=== PATIENT | male | born 1935 | race Caucasian/White ===

== ENCOUNTER → 2023-09-16 | Outpatient (CLI) | payer MEDICARE, OTHER, SELFPAY ==
--- NOTE | 2023-09-16 09:03 | ADUL_ITS ---
Reason For Study: Post Op Angioplasty Rt Lauren Right Velocities Ext. Iliac Artery, dist = 66 cm./sec. Common Femoral Artery, mid = 110 cm./sec. Supf Femoral Artery, prox = 82 cm./sec. Supf Femoral Artery, mid = 82 cm./sec. Supf Femoral Artery, dist. = 66 cm./sec. Profunda Femoral Artery = 54 cm./sec. Rt Lauren Stent: Pre-stent: 70 cm/sec. Prox stent: 97 cm/sec.. Mid stent: 148 cm/sec. Distal stent: 80 cm/sec. Post stent: 75 cm/sec. Ant. Tibial Artery, prox = 63 cm./sec. Ant. Tibial Artery, mid = 68 cm./sec. Ant. Tibial Artery, dist = 67 cm./sec. Post. Tibial Artery, prox = 148 cm./sec. Post. Tibial Artery, mid = 52 cm./sec. Post. Tibial Artery, dist = 31 cm./sec. Peroneal Artery, prox = 206 cm./sec. Peroneal Artery, mid = 92 cm./sec. Peroneal Artery,dist = 94 cm./sec. Procedure Exam performed in department. /US Art Duplex Unilat Lower Ext Interpretation Summary Patent right popliteal artery stent with normal velocities and no evidence of s tenosis. Ordering Physician: Page Diaz Referring Physician: Roscoe Hart Performed By: Mehreen Torres, YASHIRA, RVT
--- NOTE | 2023-09-16 09:03 | ART_ITS ---
Reason For Study: Post Op Rt Lauren Angioplasty Procedure A bilateral lower extremity continuous wave Doppler with analog waveform analysis and ankle brachial indexes. Left Segmental Pressures Left brachial= 168mmHg. Left posterior tibial artery = 198mmHg. Left dorsalis pedis artery = 201mmHg. Left digit = 99 mmHg. Right Segmental Pressures Right brachial= 158mmHg. Right posterior tibial artery = 178mmHg. Right dorsalis pedis artery = 191mmHg. Right digit = 100 mmHg. Indices The right ankle brachial index by the posterior tibial artery is 1.06. The right ankle brachial index by the dorsalis pedis is 1.14. The right digital-brachial index is 0.60. The left ankle brachial index by the posterior tibial artery is 1.18. The left ankle brachial index by the dorsalis pedis is 1.20. The left digital-brachial index is 0.59. VL/Ankle Brachial Index Interpretation Summary Right ESTEBAN 1.14, normal. Doppler/PVR waveforms of the right leg normal at rest. 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 Doppler/PVR waveforms of the left leg normal at rest. 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
--- OUTSIDE RECORDS SUMMARY | 2023-09-16 09:11 | XMS RPT_ITS | CCD ---
Author Name Unknown Address [address] [place] [address] Organization [facility] Care Team Providers Care Resident Assistant Cna Name Role Phone Miles Hart MD Primary Care Provider Evans Arellano DO Unavailable Emmett Jaramillo MD Unavailable RACQUEL BAKER DO Attending Unavailable RACQUEL BAKER DO Admitting Unavailable RACQUEL BAKER DO Primary Care Unavailable MILES HART Consulting Unavailable MILES HART Referring Unavailable PROVIDER, UNKNOWN Consulting Unavailable PROVIDER, UNKNOWN Consulting Unavailable PROVIDER, UNKNOWN Consulting Unavailable MILES HART Consulting Unavailable MILES HART Admitting Unavailable MILES HART Attending Unavailable MILES HART Primary Care Unavailable PROVIDER, UNKNOWN Consulting Unavailable PROVIDER, UNKNOWN Consulting Unavailable PROVIDER, UNKNOWN Consulting Unavailable KATHYA PORTER Attending Unavailable KATHYA PORTER Admitting Unavailable MILES HART Consulting Unavailable KATHYA PORTER Primary Care Unavailable MILES HART Referring Unavailable PROVIDER, UNKNOWN Consulting Unavailable PROVIDER, UNKNOWN Consulting Unavailable PROVIDER, UNKNOWN Consulting Unavailable EMMETT JARAMILLO MD Attending Unavailable EMMETT JARAMILLO MD Admitting Unavailable MILES HART Consulting Unavailable EMMETT JARAMILLO MD Primary Care Unavailable PROVIDER, UNKNOWN Consulting Unavailable PROVIDER, UNKNOWN Consulting Unavailable PROVIDER, UNKNOWN Consulting Unavailable MULU LYNCH MD Primary Care Unavailabl MULU Rangel MD Attending UnavailMILES Araiza Consulting Unavailable MULU LYNCH MD Admitting Unavailabl e PROVIDER, UNKNOWN Consulting Unavailable PROVIDER, UNKNOWN Consulting Unavailable PROVIDER, UNKNOWN Consulting Unavailable MULU LYNCH MD Admitting UnavailMULU Flores MD Primary Care Unavailabl e MULU LYNCH MD Attending UnavailMILES Araiza Consulting Unavailable PROVIDER, UNKNOWN Consulting Unavailable PROVIDER, UNKNOWN Consulting Unavailable PROVIDER, UNKNOWN Consulting Unavailable MILES HART Consulting Unavailable MILES HART Attending Unavailable MILES HART Admitting Unavailable MILES HART Primary Care Unavailable PROVIDER, UNKNOWN Consulting Unavailable PROVIDER, UNKNOWN Consulting Unavailable PROVIDER, UNKNOWN Consulting Unavailable MILES HART Consulting Unavailable MILES HART Attending Unavailable MILES HART Primary Care Unavailable MILES HART Admitting Unavailable PROVIDER, UNKNOWN Consulting Unavailable PROVIDER, UNKNOWN Consulting Unavailable PROVIDER, UNKNOWN Consulting Unavailable MILES HART Consulting Unavailable MILES HART Attending Unavailable NATALIA, MILES Admitting Unavailable MILES HRAT Primary Care Unavailable PROVIDER, UNKNOWN Consulting Unavailable PROVIDER, UNKNOWN Consulting Unavailable PROVIDER, UNKNOWN Consulting Unavailable MULU LYNCH MD Admitting UnavailMULU Flores MD Primary Care UnavailMULU Flores MD Attending Unavailabl e MILES HART Consulting Unavailable PROVIDER, UNKNOWN Consulting Unavailable PROVIDER, UNKNOWN Consulting Unavailable PROVIDER, UNKNOWN Consulting Unavailable RACQUEL BAKER DO Attending Unavailable RACQUEL BAKER DO Admitting Unavailable MILES HART Consulting Unavailable RACQUEL BAKER DO Primary Care Unavailable PROVIDER, UNKNOWN Consulting Unavailable PROVIDER, UNKNOWN Consulting Unavailable PROVIDER, UNKNOWN Consulting Unavailable MILES HART Consulting Unavailable NATALIA, MILES Attending Unavailable NATALIA, MILES Admitting Unavailable NATALIA, MILES Primary Care Unavailable PROVIDER, UNKNOWN Consulting Unavailable PROVIDER, UNKNOWN Consulting Unavailable PROVIDER, UNKNOWN Consulting Unavailable COLTEN PATEL MD Attending Unavailable COLTEN PATEL MD Admitting Unavailable MILES HART Consulting Unavailable MILES HART Referring Unavailable COLTEN PATEL MD Primary Care Unavailable PROVIDER, UNKNOWN Consulting Unavailable PROVIDER, UNKNOWN Consulting Unavailable PROVIDER, UNKNOWN Consulting Unavailable Miles Hart MD Primary Care Provider Evans Arellano DO Unavailable Emmett Jaramillo MD Unavailable EVANS ARELLANO Attending Unavailable MILES HART Primary Care Unavailable RAPHAEL CORTÉS Referring Unavailable EVANS ARELLANO Referring Unavailable MILES HART Primary Care Unavailable EVANS ARELLANO Referring Unavailable MILES HART Primary Care Unavailable RAPHAEL CORTÉS Attending Unavailable EVANS ARELLANO Referring Unavailable MILES HART Primary Care Unavailable Allergies Allergy Classification Reported Allergen(s) Allergy Type Date of Onset Reaction(s) Facility (16 sources) Sulfonamides (Antibiotic); Translations: [SULFA (SULFONAMIDE ANTIBIOTICS)] Propensity to adverse reactions to drug 5 Unknown [facility] (1 source) Sulfonamides (Antibiotic) Drug allergy (disorder) [facility] Repository Medications Current Medications Medication Drug Class(es) Dates Sig (Normalized) Sig (Original) perflutren lipid microspheres 1.3 mL in NaCl (PF) 0.9% 10 mL injection (DEFINITY) (14 sources) Start: 09-25-2021 End: 12-25-2022 perflutren lipid microspheres 1.3 mL in NaCl (PF) 0.9% 10 mL injection (DEFINITY) 125 ml sodium chloride 9 mg/ml prefilled syringe (14 sources) Start: 09-25-2021 End: 12-25-2022 sodium chloride 0.9 % (flush) 10 mL (BD POSIFLUSH) Completed/Discontinued Medications Medication Drug Class(es) Dates Sig (Normalized) Sig (Original) 8 hr acetaminophen 650 mg extended release oral tablet (15 sources) take 1 tablet by mouth every eight hours as needed acetaminophen 650 mg CR tablet Take 650 mg by mouth every 8 hours as needed. 0 Active Problems Active Problems Problem Classification Problem Date Documented Date Episodic/Chronic Aortic; peripheral; and visceral artery aneurysms (15 sources) Aortic root dilatation; Translations: [Thoracic aortic ectasia] Onset: 10-05-2021 10-05-2021 Chronic Cardiac dysrhythmias (3 sources) Unspecified atrial fibrillation; Translations: [Unspecified atrial fibrillation] Onset: 01-20-2022 Chronic Coagulation and hemorrhagic disorders (18 sources) Immune thrombocytopenia; Translations: [Immune thrombocytopenic purpura] Onset: 08-19-2016 08-19-2016 Chronic Deficiency and other anemia (2 sources) Anemia; Translations: [Anemia, unspecified] Episodic Deficiency and other anemia (1 source) Microcytic anemia; Translations: [Iron deficiency anemia, unspecified] Episodic Deficiency and other anemia (1 source) Iron deficiency anemia, unspecified; Translations: [Microcytic anemia] Onset: 08-16-2023 Episodic Essential hypertension (16 sources) Hypertensive disorder; Translations: [Essential (primary) hypertension] Onset: 11-09-2021 11-09-2021 Chronic Heart valve disorders (16 sources) Aortic valve stenosis; Translations: [Nonrheumatic aortic (valve) stenosis] Onset: 10-05-2021 10-05-2021 Chronic Hyperplasia of prostate (2 sources) Benign prostatic hypertrophy with outflow obstruction; Translations: [Benign prostatic hyperplasia with lower urinary tract symptoms] Onset: 01-20-2022 Chronic Leukemias (20 sources) Chronic lymphoid leukemia, disease; Translations: [Chronic lymphocytic leukemia of B-cell type not having achieved remission] Onset: 07-16-2015 07-16-2015 Chronic Other connective tissue disease (15 sources) History of total hip arthroplasty; Translations: [Presence of unspecified artificial hip joint] Onset: 11-12-2021 11-12-2021 Chronic Other connective tissue disease (1 source) History of repair of hip joint; Translations: [Presence of unspecified artificial hip joint] Chronic Other connective tissue disease (4 sources) Presence of right artificial hip joint; Translations: [Presence of right artificial hip joint] Onset: 01-20-2022 Chronic Other non-traumatic joint disorders (2 sources) Pain in right hip joint; Translations: [Pain in right hip] Episodic Kathy-; endo-; and myocarditis; cardiomyopathy (except that caused by tuberculosis or sexually transmitted disease) (15 sources) Heart valve disorder; Translations: [Endocarditis, valve unspecified] Onset: 10-05-2021 10-05-2021 Chronic Pulmonary heart disease (15 sources) Pulmonary hypertension, unspecified; Translations: [Other chronic pulmonary heart diseases] Onset: 10-05-2021 10-05-2021 Chronic Past or Other Problems Problem Classification Problem Date Documented Da te Episodic/Chronic Allergic reactions (1 source) Allergy status to sulfonamides status; Translations: [Allergy status to sulfonamides] Onset: 01-20-2022 Episodic Complication of device; implant or graft (15 sources) Disorder of prosthetic joint; Translations: [Broken internal right hip prosthesis, initial encounter] Onset: 10-05-2021 10-05-2021 Episodic Fluid and electrolyte disorders (2 sources) Hypokalemia; Translations: [Hypokalemia] Onset: 01-20-2022 Episodic Genitourinary symptoms and ill-defined conditions (6 sources) Retention of urine; Translations: [Retention of urine, unspecified] Onset: 01-04-2022 Episodic Residual codes; unclassified (1 source) Acquired absence of other specified parts of digestive tract; Translations: [Acquired absence of other specified parts of digestive tract] Onset: 01-20-2022 Episodic Results Test Name Value Interpretation Reference Range Facil ity Vital Signs Date Time Vital Sign Value Performing Clinician Abril cabrera 08-16-2023 09:36-0500 Body temperature 97.81 [degF] Evans Arellano DO Work Phone: [facility] 08-16-2023 09:36-0500 Body weight 83.01 kg Evans Masci DO Work Phone: [facility] 08-16-2023 09:36-0500 Diastolic blood pressure 72 mm[Hg] Evans Masci DO Work Phone: [facility] 08-16-2023 09:36-0500 Heart rate 83 /min Evans Masci DO Work Phone: [facility] 08-16-2023 09:36-0500 SaO2% (BldA) [Mass fraction] 99 % Evans Masci DO Work Phone: [facility] 08-16-2023 09:36-0500 Systolic blood pressure 162 mm[Hg] Evans Masci DO Work Phone: [facility] 08-10-2022 11:23-0500 Body temperature 98.1 [degF] Evans Masci DO Work Phone: [facility] 08-10-2022 11:23-0500 Body weight 82.33 kg Evans Masci DO Work Phone: [facility] 08-10-2022 11:23-0500 Diastolic blood pressure 82 mm[Hg] Evans Masci DO Work Phone: [facility] 08-10-2022 11:23-0500 Heart rate 49 /min Evans Masci DO Work Phone: [facility] 08-10-2022 11:23-0500 Systolic blood pressure 146 mm[Hg] Evans Masci DO Work Phone: [facility] 02-12-2022 10:30-0400 Body temperature 98.4 [degF] Evans Masci DO Work Phone: [facility] 02-12-2022 10:30-0400 Body weight 83.01 kg Evans Masci DO Work Phone: [facility] 02-12-2022 10:30-0400 Diastolic blood pressure 77 mm[Hg] Evans Masci DO Work Phone: [facility] 02-12-2022 10:30-0400 Heart rate 59 /min Evans Masci DO Work Phone: [facility] 02-12-2022 10:30-0400 Systolic blood pressure 135 mm[Hg] Evans Arellano DO Work Phone: [facility] 12-25-2021 11:10-0400 Body height 175.3 cm Alvin Montgomery MD Work Phone: [facility] 12-25-2021 11:10-0400 Body weight 84.82 kg Alvin Montgomery MD Work Phone: [facility] 12-25-2021 11:10-0400 Diastolic blood pressure 62 mm[Hg] Alvin Montgomery MD Work Phone: [facility] 12-25-2021 11:10-0400 Heart rate 58 /min Alvin Montgomery MD Work Phone: [facility] 12-25-2021 11:10-0400 Respiratory rate 18 /min Alvin Montgomery MD Work Phone: [facility] 12-25-2021 11:10-0400 Systolic blood pressure 133 mm[Hg] Alvin Montgomery MD Work Phone: [facility] 12-09-2021 10:47-0400 Body height 175.3 cm Jenifer Diaz APRN.[employer]PH[employer]ER Work Phone: [facility] Encounters Encounter Date Encounter Type Care Provider Facility Start: 08-16-2023 End: 08-17-2023 ambulatory EVANS ARELLANO Facility:[facility] Start: 08-16-2023 End: 08-16-2023 ambulatory Evans Arellano DO Work Phone: Hematology/Oncology Procedures Date Procedure Procedure Detail Performing Clinician Start: 03-09-2022 Radex hip unilateral with pelvis 2-3 views Kilo Castillo APRN.[employer]PH[employer] LAYER Work Phone: Start: 09-25-2021 Antibody screen Plan of Treatment Date Care Activity Detail Author Start: 09-19-2026 Urine microalbumin profile DTaP,Tdap,Td Vaccine (2 - Td or Tdap) [facility] Start: 08-16-2026 Diabetes Screening Diabetes Screening [facility] Start: 08-10-2025 DIABETES SCREEN DIABETES SCREEN [facility] Start: 02-12-2025 DIABETES SCREEN DIABETES SCREEN [facility] Start: 11-16-2024 DIABETES SCREEN DIABETES SCREEN [facility] Start: 05-20-2023 Covid-19 Vaccine ( season) Covid-19 Vaccine () [facility] Start: 09-19-2022 ADVANCE DIRECTIVE DISCUSSION ADVANCE DIRECTIVE DISCUSSION [facility] Start: 09-19-2022 DEPRESSION ASSESSMENT DEPRESSION ASSESSMENT [facility] Start: 08-10-2022 End: 10-10-2022 CBC W Auto Differential panel - Blood CBC + DIFF Lab STAT CLL (chronic lymphocytic leukemia) (HCC) Anemia, unspecified type Immune thrombocytopenic purpura (HCC) Expected: 08/10/2022, Expires: 10/10/2022 [facility] Work Phone: Payers Date Payer Category Payer Unknown MMO MMO MEDICARE SUPPLEMENT [id number] 2019-Present [phone] [address] [place] [address] Indemnity [id number] 2019 Unknown MMO MMO MEDICARE SUPPLEMENT [id number] 2019-Present [phone] [address] [place] [address] Indemnity [id number] 2019 Unknown [id number] 1999 Medicare MEDICARE MEDICAR E A AND B [id number] 1999-Present [phone] [address] [address] [place] [address] Medicare [id number] 1999 Medicare MEDICARE MEDICAR E A AND B [id number] 1999-Present [phone] [place] [address] Medicare [id number] 1999 Medicare [id number] 1934 Unknown [id number] 1934 Unknown [id number] 1934 Unknown [id number] 1934 Unknown [id number] 1934 Unknown [id number] 1934 Unknown [id number] 1934 Unknown [id number] 1934 Unknown [id number] 1934 Unknown [id number] 1934 Unknown [id number] 1934 Unknown [id number] 1934 Unknown [id number] 1934 Unknown [id number] Social History Date Type Detail Facility Start: 07-16-2015 Tobacco smoking stat [facility] Never smoked tobacco [facility] Start: 07-16-2015 Tobacco use and exposure Smoke less tobacco non-user [facility] Start: 12-09-2021 End: 08-16-2023 Alcohol intake Current non-drinker of alcohol (finding) [facility] Start: 1935 Sex Assigned At Not on file C [facility] Start: 11-29-2021 End: 08-10-2022 Exposure to SARS-CoV-2 (event) Not sure [facility] Start: 02-09-2023 End: 08-16-2023 History of Social function [facility] Start: 02-09-2023 End: 08-16-2023 Tobacco use panel [facility] Adult Depression Scr eening Assessment 0 [facility] Medical Equipment Procedure Code Equipment Code Equipment Origin al Text Equipment Identifier Dates Stem Lamar Sts 2 2mm Taper Titanium 150mm Femoral Press Fit Spline Modular - [id number] Start: 11-12-2021 Body Lamar B Sta ndard Offset Titanium 60mm Cone Modular Revision System - [id number] Start: 11-12-2021 Shell G7 58mm G Offset Hemisphere Osseoti Acetabular Multihole Hip - [id number] Start: 11-12-2021 Liner G7 46mm G Acetabular 2 Mobility Hip - [id number] Start: 11-12-2021 Bearing Active Articulation 46mm Arcomxl Hip 28mm Modular Head 2 Mobility - [id number] Start: 11-12-2021 Head G7 28mm Bio lox Delta Femoral Hip - [id number] Start: 11-12-2021 Sleeve G7 -6mm O ffset Taper Biolox Delta Option Titanium Centering Type 1 - [id number] Start: 11-12-2021 Cable Dall-Miles 2mm Vitallium Orthopedic Set Sleeve Bead Hip - [id number] Start: 11-12-2021 Cable Dall-Miles 2mm Vitallium Orthopedic Set Sleeve Bead Hip - [id number] Start: 11-12-2021 Cable Dall-Miles 2mm Vitallium Orthopedic Set Sleeve Bead Hip - [id number] Start: 11-12-2021 Screw Trilogy 6. 5mm Tivanium 25mm Bone Self Tap Sterile Hip Cortical - [id number] Start: 11-12-2021 Screw Trilogy 6. 5mm Tivanium 25mm Bone Self Tap Sterile Hip Cortical - [id number] Start: 11-12-2021 Screw Trilogy 6. 5mm Tivanium 25mm Bone Self Tap Sterile Hip Cortical - [id number] Start: 11-12-2021 Clinical Notes 10-19-2021 to 08-16-2023 Evans Arellano, - 08/16/2023 9:52 AM ESTTelephone Encounter - Beth Pruitt RN - 11/24/2022 4:06 PM ESTTelephone Encounter - Evans Arellano DO - 08/19/2022 11:53 AM ESTPatient Instructions Note Date & Type Note Facility 08-16-2023 Note HNO ID: [id number] Author: Evans Arellano DO Service: ? Author Type: Physician Type: Progress Notes Filed: 08/16/2023 10:29 AM Note Text: Diagnosis: 1) CLL. HPI: The patient is a 88 yo male with a PMH significant for HTN who has a h/o CLL. See scanned labs--mild anemia and t-penia. Previous therapy: 1) Gazyva/chlorambucil. 2016. Had R hip replacement 10/2021. 5 hour surgery. Recalls getting at least 1 unit RBCs. Urinary retention following--had TURP and indwelling catheter x2 weeks. He underwent outpatient thrombectomy and stent placement to the right popliteal artery on 05/19. He was observed overnight in the PCU and discharged the following day. Was discharged on rivaroxaban. While admitted, hemoglobin was 14.2 g/dL with an MCV of 82.6 and MCH of 26 pg. Platelet count 121,000. White count 6700. Presents for ongoing oncologic management. Interim history: Had the flu 2 weeks ago. Testing confirmed. Had influenza vaccination. No fever. Aches with cough. Better now. No unusual bleeding. 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 PMH, medications and allergies as below personally reviewed by me today. Any changes documented in appropriate section. ROS: Constitutional: No episode of fever, shaking chill or change in appetite. Neuro: Denies CHAVARRIA, vertigo and imbalance. No symptoms of neuropathy. HEENT: No recent change in voice, vision or hearing. Resp: See above. CVS: Denies exertional chest pain, PND, orthopnea and LE edema. GI: Denies reflux, n/v, change in bowel habits and abdominal pain. No symptoms of stomatitis. : No dysuria or gross hematuria. No symptoms of bladder outlet obstruction. Endo: No hot flashes. Derm: No rash. Heme: See above. Psych: Normal mood. PHYSICAL EXAM: Vitals: Blood pressure 162/72, pulse 83, temperature 36.6 ?C (97.8 ?F), temperature source Temporal, weight 83 kg (183 lb), SpO2 99 %. Well-appearing and in no acute distress. EYES: Sclerae are anicteric bilaterally. LYMPHATIC: There is no palpable cervical, supraclavicular or axillary adenopathy. RESPIRATORY: Inspiratory breath sounds are of normal intensity in all coombs. No rales, wheezes or rhonchi. CARDIOVASCULAR: Rhythm is regular. ABDOMEN: The abdomen is nondistended. There is no organomegaly. No tenderness. Extremities: Free of edema. SKIN: No jaundice or rash. No petechiae. NEUROLOGIC: global cto II-XII are grossly intact. LABS: Component Latest Ref Rng AND Units 08/16/2023 WBC 3.70 - 11.00 k/uL 6.75 RBC 4.20 - 6.00 m/uL 5.27 Hemoglobin 13.0 - 17.0 g/dL 15.3 Hematocrit 39.0 - 51.0 % 46.7 MCV 80.0 - 100.0 fL 88.6 MCH 26.0 - 34.0 pg 29.0 MCHC 30.5 - 36.0 g/dL 32.8 RDW-CV 11.5 - 15.0 % 13.0 Platelet Count 150 - 400 k/uL 144 (L) MPV 9.0 - 12.7 fL 10.6 Neut% % 61.4 Abs Neut (ANC) 1.45 - 7.50 k/uL 4.15 Lymph% % 24.0 Abs Lymph 1.00 - 4.00 k/uL 1.62 [place]% % 7.3 Abs [place] <0.87 k/uL 0.49 Eosin% % 6.4 Abs Eosin <0.46 k/uL 0.43 Baso% % 0.6 Abs Baso <0.11 k/uL 0.04 Immature Gran % % 0.3 IMMATURE GRANS (ABS) <0.10 k/uL <0.03 NRBC /100 WBC 0.0 Absolute nRBC <0.01 k/uL <0.01 DTYPE Auto ASSESSMENT/PLAN: (C91.10) CLL (chronic lymphocytic leukemia) (HCC) (primary encounter diagnosis) (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 -Response evidenced by previous correction of anemia. -Reviewed CBC results. -Mild thrombocytopenia which is stable and allows for continued Xarelto. -Back on Xarelto for h/o DVT. Plan: -Advised updated Covid vaccination and RSV vaccination. -OV/CBC/CMP/iron studies/LDH in about 6 months. Portions of this documentation were copied and pasted from previous office visit notes in order to provide a cohesive continuity of the history. The note has been reviewed and edited and updated as necessary. I spent a total of 20 minutes on the date of the service which included preparing to see the patient, [id number] patient care, completing clinical documentation, obtaining and/or reviewing separately obtained history, performing a medically appropriate examination, counseling and educating the patient/family/caregiver, communicating with other HCPs (not separately reported), and communicating results to the patient/family/caregiver. Evans Arellano DO [facility] 08-16-2023 History of Presen t illness Narrative Diagnosis: 1) CLL. HPI: The patient is a 88 yo male with a PMH significant for HTN who has a h/o CLL. See scanned labs--mild anemia and t-penia. Previous therapy: 1) Gazyva/chlorambucil. 2015. Had R hip replacement 10/2021. 5 hour surgery. Recalls getting at least 1 unit RBCs. Urinary retention following--had TURP and indwelling catheter x2 weeks. He underwent outpatient thrombectomy and stent placement to the right popliteal artery on 05/19. He was observed overnight in the PCU and discharged the following day. Was discharged on rivaroxaban. While admitted, hemoglobin was 14.2 g/dL with an MCV of 82.6 and MCH of 26 pg. Platelet count 121,000. White count 6700. Presents for ongoing oncologic management. Interim history: Had the flu 2 weeks ago. Testing confirmed. Had influenza vaccination. No fever. Aches with cough. Better now. No unusual bleeding. 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 PMH, medications and allergies as below personally reviewed by me today. Any changes documented in appropriate section. ROS: Constitutional: No episode of fever, shaking chill or change in appetite. Neuro: Denies CHAVARRIA, vertigo and imbalance. No symptoms of neuropathy. HEENT: No recent change in voice, vision or hearing. Resp: See above. CVS: Denies exertional chest pain, PND, orthopnea and LE edema. GI: Denies reflux, n/v, change in bowel habits and abdominal pain. No symptoms of stomatitis. : No dysuria or gross hematuria. No symptoms of bladder outlet obstruction. Endo: No hot flashes. Derm: No rash. Heme: See above. Psych: Normal mood. PHYSICAL EXAM: Vitals: Blood pressure 162/72, pulse 83, temperature 36.6 C (97.8 F), temperature source Temporal, weight 83 kg (183 lb), SpO2 99 %. Well-appearing and in no acute distress. EYES: Sclerae are anicteric bilaterally. LYMPHATIC: There is no palpable cervical, supraclavicular or axillary adenopathy. RESPIRATORY: Inspiratory breath sounds are of normal intensity in all coombs. No rales, wheezes or rhonchi. CARDIOVASCULAR: Rhythm is regular. ABDOMEN: The abdomen is nondistended. There is no organomegaly. No tenderness. Extremities: Free of edema. SKIN: No jaundice or rash. No petechiae. NEUROLOGIC: global cto II-XII are grossly intact. LABS: Component Latest Ref Rng & Units 08/16/2023 WBC 3.70 - 11.00 k/uL 6.75 RBC 4.20 - 6.00 m/uL 5.27 Hemoglobin 13.0 - 17.0 g/dL 15.3 Hematocrit 39.0 - 51.0 % 46.7 MCV 80.0 - 100.0 fL 88.6 MCH 26.0 - 34.0 pg 29.0 MCHC 30.5 - 36.0 g/dL 32.8 RDW-CV 11.5 - 15.0 % 13.0 Platelet Count 150 - 400 k/uL 144 (L) MPV 9.0 - 12.7 fL 10.6 Neut% % 61.4 Abs Neut (ANC) 1.45 - 7.50 k/uL 4.15 Lymph% % 24.0 Abs Lymph 1.00 - 4.00 k/uL 1.62 [place]% % 7.3 Abs [place] <0.87 k/uL 0.49 Eosin% % 6.4 Abs Eosin <0.46 k/uL 0.43 Baso% % 0.6 Abs Baso <0.11 k/uL 0.04 Immature Gran % % 0.3 IMMATURE GRANS (ABS) <0.10 k/uL <0.03 NRBC /100 WBC 0.0 Absolute nRBC <0.01 k/uL <0.01 DTYPE Auto ASSESSMENT/PLAN: (C91.10) CLL (chronic lymphocytic leukemia) (HCC) (primary encounter diagnosis) (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 -Response evidenced by previous correction of anemia. -Reviewed CBC results. -Mild thrombocytopenia which is stable and allows for continued Xarelto. -Back on Xarelto for h/o DVT. Plan: -Advised updated Covid vaccination and RSV vaccination. -OV/CBC/CMP/iron studies/LDH in about 6 months. Portions of this documentation were copied and pasted from previous office visit notes in order to provide a cohesive continuity of the history. The note has been reviewed and edited and updated as necessary. I spent a total of 20 minutes on the date of the service which included preparing to see the patient, [id number] patient care, completing clinical documentation, obtaining and/or reviewing separately obtained history, performing a medically appropriate examination, counseling and educating the patient/family/caregiver, communicating with other HCPs (not separately reported), and communicating results to the patient/family/caregiver. Evans Arellano DO documented in this encounter [facility] 02-09-2023 Note HNO ID: [id number] Author: Raphael Cortés APRN.[employer] [employer] Service: ? Author Type: Nurse Practitioner Type: Progress Notes Filed: 02/10/2023 1:17 PM Note Text: Chief Complaint Patient presents with: Established Patient HPI: Dami Almazan is a 88 year old male who presents here today for follow up CLL. Per Dr. Arellano's previous note: H/o HTN who has a h/o CLL. See scanned labs--mild anemia and t-penia. Previous therapy: 1) Gazyva/chlorambucil. Had R hip replacement 10/2021. 5 hour surgery. Recalls getting at least 1 unit RBCs. Urinary retention following--had TURP and indwelling catheter x2 weeks. He underwent outpatient thrombectomy and stent placement to the right popliteal artery on 05/19. He was observed overnight in the PCU and discharged the following day. Was discharged on rivaroxaban. While admitted, hemoglobin was 14.2 g/dL with an MCV of 82.6 and MCH of 26 pg. Platelet count 121,000. White count 6700. No new concerns today. Appetite: Good. Energy level: I get tired. I've been staining a fence. Denies fevers or recent illness. Resp:denies cough or sob Cardiac:denies chest pain/palpitations-followed by cardiology GI:denies abd pain, n/v, moving bowels regularly :denies dysuria/hematuria Extrem:denies new pain, h/o R leg pain s/p surgeries Neuro:R inner foot neuropathy Skin:denies rashes Heme:denies bleeding, easy bruising The ROS is otherwise negative. Past medical history, appointments, medications, allergies reviewed. No changes. EXAM: BP 131/80 Pulse (!) 50 Temp 36.4 ?C (97.5 ?F) Ht 173.5 cm (5' 8.31 ) Wt 83.2 kg (183 lb 8 oz) SpO2 96% BMI 27.65 kg/m? APPEARANCE Well appearing, alert, in no acute distress, well-hydrated, well nourished. HEART RRR with normal S1 and S2, III/ LUNG clear to auscultation LYMPH NODES No cervical lymphadenopathy, No supraclavicular lymphadenopathy, and No axillary lymphadenopathy. ABDOMEN bowel sounds normoactive, soft, non-tender EXTREMITIES RLE chronic edema, LLE no edema NEURO Awake, alert and oriented x 3, Normal gait, and No involuntary motions. SKIN Skin color, texture, turgor normal, no suspicious rashes or lesions LABS: Component Latest Ref Rng AND Units 02/12/2022 08/10/2022 02/09/2023 WBC 3.70 - 11.00 k/uL 8.67 7.21 5.81 RBC 4.20 - 6.00 m/uL 4.57 4.56 5.00 Hemoglobin 13.0 - 17.0 g/dL 12.4 (L) 10.2 (L) 14.6 Hematocrit 39.0 - 51.0 % 37.3 (L) 34.0 (L) 43.9 MCV 80.0 - 100.0 fL 81.6 74.6 (L) 87.8 MCH 26.0 - 34.0 pg 27.1 22.4 (L) 29.2 MCHC 30.5 - 36.0 g/dL 33.2 30.0 (L) 33.3 RDW-CV 11.5 - 15.0 % 14.9 16.2 (H) 13.7 Platelet Count 150 - 400 k/uL 150 161 120 (L) MPV 9.0 - 12.7 fL 9.3 10.3 11.0 Neut% % 64.0 57.0 60.6 Abs Neut (ANC) 1.45 - 7.50 k/uL 5.55 4.11 3.52 Lymph% % 20.3 26.9 25.5 Abs Lymph 1.00 - 4.00 k/uL 1.76 1.94 1.48 [place]% % 8.7 7.8 7.7 Abs [place] <0.87 k/uL 0.75 0.56 0.45 Eosin% % 6.3 7.4 5.3 Abs Eosin <0.46 k/uL 0.55 (H) 0.53 (H) 0.31 Baso% % 0.5 0.8 0.7 Abs Baso <0.11 k/uL 0.04 0.06 0.04 Immature Gran % % 0.2 0.1 0.2 IMMATURE GRANS (ABS) <0.10 k/uL <0.03 <0.03 <0.03 NRBC /100 WBC 0.0 0.0 0.0 Absolute nRBC <0.01 k/uL <0.01 <0.01 <0.01 DTYPE Auto Auto Auto Component Latest Ref Rng AND Units 08/10/2022 02/09/2023 Protein, Total 6.3 - 8.0 g/dL 6.9 6.6 Albumin 3.9 - 4.9 g/dL 4.1 3.8 (L) Calcium 8.5 - 10.2 mg/dL 9.5 9.5 Bilirubin, Total 0.2 - 1.3 mg/dL 0.4 0.7 Alkaline Phosphatase 38 - 113 U/L 96 72 AST 14 - 40 U/L 15 20 ALT 10 - 54 U/L 12 24 Glucose 74 - 99 mg/dL 113 (H) 124 (H) BUN 9 - 24 mg/dL 26 (H) 27 (H) Creatinine 0.73 - 1.22 mg/dL 1.12 1.19 Sodium 136 - 144 mmol/L 140 139 Potassium 3.7 - 5.1 mmol/L 3.6 (L) 3.8 Chloride 97 - 105 mmol/L 103 103 CO2 22 - 30 mmol/L 29 30 Anion Gap 9 - 18 mmol/L 8 (L) 6 (L) eGFR >=60 mL/min/1.73mA? 63 58 (L) Iron studies: Pending ASSESSMENT/PLAN: 1. CLL (chronic lymphocytic leukemia) (HCC) - ICD9: 204.10, ICD10: C91.10 Completed 6 cycles of obinutuzumab and chlorambucil 12/2015. Response evidenced by previous correction of anemia. - No new concerning findings on exam. - Reviewed labs with pt. - Continue oral iron. - Follow up with Dr. Arellano in 6 months with CBC/CMP/LD. - Pt. aware to call office with any questions/concerns. The patient indicates understanding of these issues and agrees with the plan. All documentation from previous visit of 08/10/22-Dr. Arellano was copied and pasted, documentation has been reviewed and edited as necessary for today's visit. Raphael Cortés APRN.[facility] 11-24-2022 Miscellaneous Notes Patient had EGD/colonoscopy done on 10/25/22. Documents scanned in on 11/02/22. Beth Pruitt RN Noted. Thank you. Evans Arellano DO Patient stated his PCP referred him to [facility]. Patient instructed to call our office once he has a date for his procedure so this nurse can request records. Patient stated understanding. Beth Pruitt RN Spoke to patient. Patient has not contacted his PCP yet. Patient stated he will contact next week. This nurse will follow-up later next week. Beth Pruitt RN documented in this encounter [facility] 11-03-2022 Note [facility] HISTORY & PHYSICAL NAME ACCOUNT SEX AGE ADMIT DISCHARGE PT MED. RECORD# NUMBER DATE DATE TYPE DAMI ALMAZAN [id number] M 87 10/25/22 2 [id number] ROOM: [facility] DATE OF : [birth year] DICTATING PHYSICIAN: Kathya Porter CHIEF COMPLAINT: Anemia. HISTORY OF PRESENT ILLNESS: Mr. Almazan is an 87-year-old male who presents with asymptomatic anemia. The anemia was diagnosed on routine laboratory work. He denies any worrisome sign or symptoms. He does report having a normal colonoscopy approximately 10 to 15 years ago. PAST MEDICAL HISTORY: Coronary artery disease. MEDICATIONS: See MAR. ALLERGIES: Sulfa. SOCIAL HISTORY: Hip replacement and prostate surgery. REVIEW OF SYSTEMS: Ten system review of systems are negative. PHYSICAL EXAMINATION GENERAL APPEARANCE: In general, he is alert, oriented, and appropriate with no acute distress. VITAL SIGNS: On exam, he is afebrile. Vital signs stable, within normal limits. LUNGS: Clear to auscultation bilaterally. HEART: Regular rate and rhythm. ABDOMEN: Soft, nontender, and nondistended. EXTREMITIES: Extremities show no cyanosis, edema, or gross deformities. NEUROLOGIC: GCS of 15. Cranial nerves II-XII are grossly intact. IMPRESSION: This is an 87-year-old male with anemia. PLAN: I discussed the risks, benefits, and alternatives of EGD and colonoscopy. All questions were answered, and he voiced understanding and agreement with the plan. Page 1 of 2 DAMI ALMAZAN History & Physical DAMI ALMAZAN :[id number] Dictated By: Kathya Porter MD 10/25/22 10:19 JOB #: [id number] Transcribed By: alanna 10/25/22 12:27 Electronically signed by: E-SIGN DR. PORTER 11/03/22 09:18 Update to H&P: [ ] No changes: I have examined the patient and reviewed the H&P and there are no changes. [ ] As previously dictated with the following changes: PHYSICIAN SIGNATURE: TIME: DATE: Page 2 of 2 DAMI ALMAZAN History & Physical [facility] 08-10-2022 History of Presen t illness Narrative Diagnosis: 1) CLL. HPI: The patient is a 87 yo male with a PMH significant for HTN who has a h/o CLL. See scanned labs--mild anemia and t-penia. Previous therapy: 1) Gazyva/chlorambucil. Presents for ongoing oncologic management. Interim history: Had R hip replacement 10/2021. 5 hour surgery. Recalls getting at least 1 unit RBCs. Urinary retention following--had TURP and indwelling catheter x2 weeks. He underwent outpatient thrombectomy and stent placement to the right popliteal artery on 05/19. He was observed overnight in the PCU and discharged the following day. Was discharged on rivaroxaban. While admitted, hemoglobin was 14.2 g/dL with an MCV of 82.6 and MCH of 26 pg. Platelet count 121,000. White count 6700. Energy-- Pretty decent for my age. No black or bloody stools lately. Was having them when on Xarelto couple months. Was changed to Plavix due to GI bleeding. No endoscopy. No further black or bloody stools since on Plavix. Denies abdominal pain. Good appetite. Stools loose and brown. PMH, medications and allergies as below personally reviewed by me today. Any changes documented in appropriate section. ROS: Constitutional: No episode of fever, shaking chill or change in appetite. Neuro: Denies CHAVARRIA, vertigo and imbalance. No symptoms of neuropathy. HEENT: No recent change in voice, vision or hearing. Resp: See above. CVS: Denies exertional chest pain, PND, orthopnea and LE edema. GI: Denies reflux, n/v, change in bowel habits and abdominal pain. No symptoms of stomatitis. : No dysuria or gross hematuria. No symptoms of bladder outlet obstruction. Endo: No hot flashes. Derm: No rash. Heme: See above. Psych: Normal mood. PHYSICAL EXAM: Vitals: Blood pressure 146/82, pulse (!) 49, temperature 36.7 C (98.1 F), temperature source Temporal, weight 82.3 kg (181 lb 8 oz). Well-appearing and in no acute distress. EYES: Sclerae are anicteric bilaterally. NECK: Supple. LYMPHATIC: There is no palpable cervical, supraclavicular or axillary adenopathy. RESPIRATORY: Inspiratory breath sounds are of normal intensity in all coombs. No rales, wheezes or rhonchi. Expiratory phase is normal. CARDIOVASCULAR: Rhythm is regular. Normal intensity S1/S2. ABDOMEN: The abdomen is nondistended. There is no organomegaly. No tenderness. Extremities: Free of edema. SKIN: No jaundice or rash. No petechiae. NEUROLOGIC: global cto II-XII are grossly intact. MS: There is tenderness just under and lateral to the vastus lateralis on the right. No mass appreciated. Trying to flex the hip causes extreme pain. Pain radiates into greater trochanter area. LABS: Component Latest Ref Rng & Units 02/12/2022 08/10/2022 WBC 3.70 - 11.00 k/uL 8.67 7.21 RBC 4.20 - 6.00 m/uL 4.57 4.56 Hemoglobin 13.0 - 17.0 g/dL 12.4 (L) 10.2 (L) Hematocrit 39.0 - 51.0 % 37.3 (L) 34.0 (L) MCV 80.0 - 100.0 fL 81.6 74.6 (L) MCH 26.0 - 34.0 pg 27.1 22.4 (L) MCHC 30.5 - 36.0 g/dL 33.2 30.0 (L) RDW-CV 11.5 - 15.0 % 14.9 16.2 (H) Platelet Count 150 - 400 k/uL 150 161 MPV 9.0 - 12.7 fL 9.3 10.3 Neut% % 64.0 57.0 Abs Neut (ANC) 1.45 - 7.50 k/uL 5.55 4.11 Lymph% % 20.3 26.9 Abs Lymph 1.00 - 4.00 k/uL 1.76 1.94 [place]% % 8.7 7.8 Abs [place] <0.87 k/uL 0.75 0.56 Eosin% % 6.3 7.4 Abs Eosin <0.46 k/uL 0.55 (H) 0.53 (H) Baso% % 0.5 0.8 Abs Baso <0.11 k/uL 0.04 0.06 Immature Gran % % 0.2 0.1 IMMATURE GRANS (ABS) <0.10 k/uL <0.03 <0.03 NRBC /100 WBC 0.0 0.0 Absolute nRBC <0.01 k/uL <0.01 <0.01 DTYPE Auto Auto Protein, Total 6.3 - 8.0 g/dL 6.9 Albumin 3.9 - 4.9 g/dL 4.1 Calcium 8.5 - 10.2 mg/dL 9.3 9.5 Bilirubin, Total 0.2 - 1.3 mg/dL 0.4 Alkaline Phosphatase 38 - 113 U/L 96 AST 14 - 40 U/L 15 ALT 10 - 54 U/L 12 Glucose 74 - 99 mg/dL 84 113 (H) BUN 9 - 24 mg/dL 27 (H) 26 (H) Creatinine 0.73 - 1.22 mg/dL 1.11 1.12 Sodium 136 - 144 mmol/L 140 140 Potassium 3.7 - 5.1 mmol/L 3.4 (L) 3.6 (L) Chloride 97 - 105 mmol/L 104 103 CO2 22 - 30 mmol/L 25 29 Anion Gap 9 - 18 mmol/L 11 8 (L) eGFR >=60 mL/min/1.73m 64 63 Iron 41 - 186 ug/dL 43 TIBC 232 - 386 ug/dL 290 Transferrin Saturation 15 - 57 % 15 Retic % 0.4 - 2.0 % 1.3 Abs Retic 0.018 - 0.100 M/uL 0.061 Testosterone Free 2.69 - 9.61 ng/dL 6.05 Testosterone 240 - 950 ng/dL 432 Ferritin 30.3 - 565.7 ng/mL 45.4 LD 135 - 225 U/L 206 161 Haptoglobin 31 - 238 mg/dL 98 DAGT, Polyspecific AHG Negative Copper 70 - 140 ug/dL 108 Vitamin B12 232-1,245 pg/mL 680 RBC Folate >=366 ng/mL See Note Uric Acid 4.0 - 8.1 mg/dL 5.5 ASSESSMENT/PLAN: (C91.10) CLL (chronic lymphocytic leukemia) (HCC) (primary encounter diagnosis) (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 -Response evidenced by previous correction of anemia. -CLL is in remission. -Platelet count remains stable in low normal range. -Worsening microcytic anemia. -Was having melena on Xarelto. None since changing to Plavix. -Discussed with him need for endoscopy. He prefers to have this done in [place] and will contact his PCP for referral. Plan: -Check iron today. -Start PO iron supplement--wrote out instructions. -Referral for colonoscopy/EGD. He will ask Dr. Hart for local referral. -PCP can monitor response to iron. -OV/CBC/CMP/iron studies/LDH in about 6 months. -I have asked the nurse coordinator to follow-up with him in a few days to be sure he has contacted Dr. Hart for endoscopy referral. Portions of this documentation were copied and pasted from previous office visit notes in order to provide a cohesive continuity of the history. The note has been reviewed and edited and updated as necessary. During this patient visit I have spent approximately 20 minutes out of 30 in counseling regarding medications, test results, outside records from [facility] and coordinating care. Evans Arellano DO documented in this encounter [facility] 03-09-2022 Note HNO ID: [id number] Author: JEN Good Service: Radiology Author Type: Technologist Type: Progress Notes Filed: 03/09/2022 10:49 AM Note Text: Radiology Service Progress Note PATIENT NAME: Dami Almazan DATE OF SERVICE: March 09, 2022 TIME: 10:49 AM PATIENT IDENTITY VERIFICATION COMPLETED USING TWO (2) IDENTIFIERS: Name and Date of confirmed by patient verbally. FALL SCREENING: Has the patient had 2 falls in the last year or 1 fall with injury or currently using an Ambulatory Assistive Device (Walker, Cane, Wheelchair, Crutches, etc.)? Yes, Patient High Risk for Falls What interventions were put in place to prevent falls during this visit? Offered Assistance with Transfers/Clothing and Increased Observations by Caregivers PATIENT GENDER DATA: Male PATIENT RELEVANT IMPLANT DATA REVIEWED: Not Applicable RADIOLOGY DEPARTMENT: General X-ray: Exam(s) Completed: Pelvis X-Ray: Pelvis with Hip Right and Wt. Bearing PERIPHERAL IV DATA: Not applicable SIGNED BY: JEN Good March 09, 2022 10:49 AM [facility] 03-09-2022 History of Presen t illness Narrative Post-op Office Visit Dami Almazan 87 year old March 09, 2022 11:03 AM Surgery Date: 11/12/21 History: Dami Almazan Is now 4 months out from right hip revision at [facility]. Post-operative course has been without complication. No readmission/complications Subjective: Patient reports mild lateral pain. Overall is doing well. cane ambulatory aid off opioid pain medication Objective: Ambulates with slight limp Incision well-approximated, no drainage, normal kathy-incisional erythema TTP directly over GT and abductors Arcs of motion at hip are comfortable and fluid Distally DP/PT palpable Distally S/S/SP/DP/T intact at baseline Distally DF/EHL/PF intact at baseline Negative otilia/calf tenderness Xrays: Well aligned well-positioned revision total hip arthroplasty with no evidence of loosening Assessment and Plan: Dami Almazan Is here for a second post-op appointment, overall doing well -continued ice, rest, and use of non-narcotic analgesia as needed -wean off ambulatory aids -discussed home exercises and therapy -WBAT on operative extremity -continue ankle pumps and dvt ppx through 4 weeks -From a bony standpoint I believe he is healed up nicely now and can be weightbearing as tolerated. His implants appear to be in appropriate position. He has no groin or anterior thigh pain anymore. He does have lateral pain over the trochanter and abductors. I do believe he is deconditioned from a muscular standpoint. I have provided a physical therapy prescription for strengthening and ambulation. I do think he can wean off of the walker as tolerated in terms of balance and pain. -will see back at 1 year appointment for clinical exam and post-op xrays--can see earlier if needed -discussed red flag symptoms of acutely increasing pain, new erythema, new swelling, drainage, shortness of breath I spent a total of 15 minutes on the date of the service which included preparing to see the patient, [id number] patient care, completing clinical documentation, obtaining and/or reviewing separately obtained history, performing a medically appropriate examination, counseling and educating the patient/family/caregiver and communicating results to the patient/family/caregiver. Emmett Jaramillo MD Orthopaedic Surgery documented in this encounter [facility] 03-09-2022 History of Presen t illness Narrative Radiology Service Progress Note PATIENT NAME: Dami Almazan DATE OF SERVICE: March 09, 2022 TIME: 10:49 AM PATIENT IDENTITY VERIFICATION COMPLETED USING TWO (2) IDENTIFIERS: Name and Date of confirmed by patient verbally. FALL SCREENING: Has the patient had 2 falls in the last year or 1 fall with injury or currently using an Ambulatory Assistive Device (Walker, Cane, Wheelchair, Crutches, etc.)? Yes, Patient High Risk for Falls What interventions were put in place to prevent falls during this visit? Offered Assistance with Transfers/Clothing and Increased Observations by Caregivers PATIENT GENDER DATA: Male PATIENT RELEVANT IMPLANT DATA REVIEWED: Not Applicable RADIOLOGY DEPARTMENT: General X-ray: Exam(s) Completed: Pelvis X-Ray: Pelvis with Hip Right and Wt. Bearing PERIPHERAL IV DATA: Not applicable SIGNED BY: JEN Good March 09, 2022 10:49 AM documented in this encounter [facility] 02-19-2022 Miscellaneous Notes Patient notified. Karey Whipple LPN Can let him know the additional lab work suggested nothing specific causing the mild anemia. I think it is from his previous hip surgery and then the recent procedure he had by Dr. Lopez. Okay to recheck in July as scheduled. Evans Arellano DO documented in this encounter [facility] 02-12-2022 History of Presen t illness Narrative Diagnosis: 1) CLL. HPI: The patient is a 86 yo male with a PMH significant for HTN who has a h/o CLL. See scanned labs--mild anemia and t-penia. Previous therapy: 1) Gazyva/chlorambucil. Presents for ongoing oncologic management. Interim history: Had R hip replacement 10/2021. 5 hour surgery. Recalls getting at least 1 unit RBCs. Urinary retention following--had TURP and indwelling catheter x2 weeks. Capable of ADLs. Good appetite. PMH, medications and allergies as below personally reviewed by me today. Any changes documented in appropriate section. ROS: Constitutional: No episode of fever, shaking chill or change in appetite. Neuro: Denies CHAVARRIA, vertigo and imbalance. No symptoms of neuropathy. HEENT: No recent change in voice, vision or hearing. Resp: See above. CVS: Denies exertional chest pain, PND, orthopnea and LE edema. GI: Denies reflux, n/v, change in bowel habits and abdominal pain. No symptoms of stomatitis. : No dysuria or gross hematuria. No symptoms of bladder outlet obstruction. Endo: No hot flashes. Derm: No rash. Heme: See above. Psych: Normal mood. PHYSICAL EXAM: Vitals: Blood pressure 135/77, pulse (!) 59, temperature 36.9 C (98.4 F), temperature source Temporal, weight 83 kg (183 lb). Well-appearing and in no acute distress. EYES: Sclerae are anicteric bilaterally. NECK: Supple. LYMPHATIC: There is no palpable cervical, supraclavicular or axillary adenopathy. RESPIRATORY: Inspiratory breath sounds are of normal intensity in all coombs. No rales, wheezes or rhonchi. Expiratory phase is normal. CARDIOVASCULAR: Rhythm is regular. Normal intensity S1/S2. ABDOMEN: The abdomen is nondistended. There is no organomegaly. No tenderness. Extremities: Free of edema. SKIN: No jaundice or rash. No petechiae. NEUROLOGIC: global cto II-XII are grossly intact. MS: There is tenderness just under and lateral to the vastus lateralis on the right. No mass appreciated. Trying to flex the hip causes extreme pain. Pain radiates into greater trochanter area. LABS: Component Latest Ref Rng & Units 11/20/2019 05/22/2020 11/18/2020 05/21/2021 09/25/2021 02/12/2022 WBC 3.70 - 11.00 k/uL 5.63 5.88 6.78 6.55 7.59 8.67 RBC 4.20 - 6.00 m/uL 5.32 5.04 5.53 5.00 5.01 4.57 Hemoglobin 13.0 - 17.0 g/dL 15.3 14.4 15.9 14.6 14.7 12.4 (L) Hematocrit 39.0 - 51.0 % 45.8 44.0 47.5 43.4 45.0 37.3 (L) MCV 80.0 - 100.0 fL 86.1 87.3 85.9 86.8 89.8 81.6 MCH 26.0 - 34.0 pg 28.8 28.6 28.8 29.2 29.3 27.1 MCHC 30.5 - 36.0 g/dL 33.4 32.7 33.5 33.6 32.7 33.2 RDW-CV 11.5 - 15.0 % 12.8 13.1 12.6 12.9 12.8 14.9 Platelet Count 150 - 400 k/uL 125 (L) 109 (L) 141 (L) 105 (L) 146 (L) 150 MPV 9.0 - 12.7 fL 10.2 10.4 10.0 10.8 10.8 9.3 Neut% % 63.7 58.6 57.5 61.8 67.7 64.0 Abs Neut (ANC) 1.45 - 7.50 k/uL 3.56 3.44 3.89 4.05 5.12 5.55 Lymph% % 24.3 26.4 23.5 25.8 20.2 20.3 Abs Lymph 1.00 - 4.00 k/uL 1.37 1.55 1.59 1.69 1.53 1.76 [place]% % 6.9 9.4 10.0 7.6 8.3 8.7 Abs [place] <0.87 k/uL 0.39 0.55 0.68 0.50 0.63 0.75 Eosin% % 4.4 4.9 8.3 4.3 3.3 6.3 Abs Eosin <0.46 k/uL 0.25 0.29 0.56 (H) 0.28 0.25 0.55 (H) Baso% % 0.7 0.7 0.7 0.5 0.5 0.5 Abs Baso <0.11 k/uL 0.04 0.04 0.05 0.03 0.04 0.04 Immature Gran % % 0.2 IMMATURE GRANS (ABS) <0.10 k/uL <0.03 NRBC /100 WBC 0.0 Absolute nRBC <0.01 k/uL <0.01 <0.01 <0.01 <0.01 <0.01 <0.01 DTYPE Auto Nucleated Reds 0 /100 WBC 0.0 0.0 0.0 0.0 0.0 Diff Type Auto Diff Auto Diff Auto Diff Auto Diff Auto Diff ASSESSMENT/PLAN: (C91.10) CLL (chronic lymphocytic leukemia) (HCC) (primary encounter diagnosis) (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 -Response evidenced by previous correction of anemia. -Platelet count remains stable overall. -Slightly more anemic now. Plan: -Will work up anemia. -Will continue to monitor q 6 months. Portions of this documentation were copied and pasted from previous office visit notes in order to provide a cohesive continuity of the history. The note has been reviewed and edited and updated as necessary. Evans Arellano DO documented in this encounter [facility] 01-24-2022 Note [facility] HISTORY & PHYSICAL/DISCHARGE SUMMARY NAME ACCOUNT SEX AGE ADMIT DISCHARGE PT MED. RECORD# NUMBER DATE DATE TYPE DAMI ALMAZAN [id number] M 86 01/20/22 01/21/22 1 [id number] ROOM: [facility] DATE OF : [birth year] DICTATING PHYSICIAN: Colten Patel CHIEF COMPLAINT: Abnormal laboratories. HISTORY OF PRESENT ILLNESS: This is an 86-year-old male with multiple chronic medical problems. He was seen for his preoperative clearance for prostate surgery. He had laboratory studies done, and his potassium was critically low. He was sent to the emergency room. In the emergency room, he was found to be in atrial fibrillation, not rapid. He does not have a history of atrial fibrillation, and he was started on potassium supplementation, beta blockers, and admitted for further management. Upon evaluation this morning, he denies any chest pain. No shortness of breath. No syncopal episodes. No dizziness. He does have a Vivas catheter, and he has a prostate surgery scheduled next week. PAST MEDICAL HISTORY: (1) Hypertension. (2) BPH with urinary retention. (3) History of chronic lymphocytic leukemia in remission. He received chemotherapy several years ago. (4) Moderate aortic stenosis on last echocardiogram available. (5) History of right hip fracture after a fall. PAST SURGICAL HISTORY: (1) Right hip replacement. (2) Cholecystectomy. (3) Hernia repair, left inguinal. (4) Previous colonoscopy. MEDICATIONS: Current medications: (1) Amlodipine unknown dose daily. (2) Cranberry 1 capsule daily. (3) Finasteride 5 mg daily. (4) Flomax 0.4 mg twice daily. (5) Furosemide unknown dose daily. (6) Klor-Con 20 mEq twice daily. (7) Multivitamin 1 tablet daily. (8) Accu-Ricki 1 tablet daily. (9) Triamterene/hydrochlorothiazide 37.5/25 daily. (10) Vitamin C 1 capsule daily. ALLERGIES: Sulfa medications. FAMILY HISTORY: Mother in 1953 of unknown cause. Father at age 75 of unknown cause. There is no coronary artery disease in the family. Multiple siblings have had cancer. SOCIAL HISTORY: The patient is a . He has grown children, a supportive family. He does not smoke nor drink alcohol. He is very active. REVIEW OF SYSTEMS: He denies any headache, acute visual changes. No recent Page 1 of 4 DAMI ALMAZAN History Physical/Discharge Summary DAMI ALMAZAN :1935 weight changes, fever or chills. No chest pain. No shortness of breath. No syncopal episodes. No dizziness. No bowel changes. He does have a Vivas catheter for urination since his last surgery. PHYSICAL EXAMINATION GENERAL APPEARANCE: The patient was sitting up in no acute distress. He was alert, pleasant and cooperative, well-nourished, well-developed 86-year-old male. VITAL SIGNS: Blood pressure 164/79, heart rate 62, respirations 16, temperature 98.1, oxygen saturation 95% on room air, weight 185 pounds with BMI of 29.04. HEENT: Reveals hard of hearing. NECK: Neck is supple. No JVD. LUNGS: Normal respiratory effort, equal lung expansion, clear to auscultation bilaterally. HEART: Irregularly irregular with 3/6 systolic murmur. ABDOMEN: Positive bowel sounds, soft and nontender. EXTREMITIES: Free of edema. NEUROLOGIC: He is alert and oriented. He is able to answer questions appropriately. DIAGNOSTIC DATA: Laboratory data: White count is 7.3, hemoglobin 13.2, hematocrit 40.1. INR is 1.0. On admission, potassium was 2.7 and this morning 3.4. BUN on admission was 34, creatinine 1.41. This morning, BUN was 30 and creatinine 1.20. Glucose is 125 and repeated was 100. Liver function tests within normal limits. Diagnostic studies included a chest x-ray AP, done in the emergency room with no acute disease. Echocardiogram with an ejection fraction of 60 to 65%, mild mitral regurgitation, and severe calcific aortic valve with severe aortic stenosis with right ventricular systolic pressure of 33. IMPRESSION/PLAN: 1. Atrial fibrillation, not rapid, unknown duration. He was admitted to the hospital. He was placed on beta blockers. Cardiology was placed on consultation. His heart rate is stable. Dr. Lynch recommended Eliquis. He will be sent home on 5 mg p.o. daily. He is advanced age; however, creatinine clearance is 57, and his body mass index is 29. He does follow with a Commercial Sewing Instructor, Dr. Bo. The patient and family are deciding whether to go followup with Dr. Bo or Dr. Lynch as he will need Page 2 of 4 DAMI ALMAZAN History Physical/Discharge Summary DAMI ALMAZAN :1935 cardiac clearance for an upcoming procedure. 2. Severe aortic stenosis with significant change from last echocardiogram that we have available; however, he stated his group sales manager cleared him in October for a 5 hour hip surgery, and he did not have any complications. He will need followup with Cardiology, and may be a candidate for intervention. 3. Urinary retention with (more content not included)... [facility] 01-24-2022 Note [facility] DIS[facility]GE SUMMARY NAME ACCOUNT SEX AGE ADMIT DISCHARGE PT MED. RECORD# NUMBER DATE DATE TYPE DAMI ALMAZAN [id number] M 86 01/20/22 01/21/22 1 [id number] ROOM: [facility] DATE OF : 1935 ATTENDING PHYSICIAN: Colten Patel ADDENDUM DISCHARGE INSTRUCTIONS/PLAN: He was being discharged home on metoprolol. His heart rate was in the 50s. Cardiology contacted me and recommended stopping metoprolol. His only new medication for home will be Eliquis and a renewal on his potassium. Beta blockers were stopped prior to discharge, and he will have a follow-up appointment with Cardiology as previously stated. Dictated By: Colten Patel MD 01/21/22 12:02 JOB #: [id number] Transcribed By: [email or web address] 01/21/22 13:34 Electronically signed by: E-Sign: COLTEN PATEL MD 01/24/22 17:32 Page 1 of 1 DAMI ALMAZAN Discharge Summary [facility] 01-21-2022 Miscellaneous Notes Patient's daughter called in with an update. Mr. Almazan has been admitted to a local hospital due to decreased potassium level and a heart flutter . This was found on routine blood work for some urology surgery he was due to have on January 27, 2022. They will call back when they can reschedule a follow-up. Any questions his daughter said to give her a call. She can be reached at [phone]. Yadira Maria documented in this encounter [facility] 01-12-2022 Miscellaneous Notes Patient has been added to schedule. Thanks! Please schedule Mr. Almazan to see Reji on January at 10 am. This is just for a clinical check S/P revision R PRATEEK. No x-rays are needed. Patient is aware of the appointment. No need to call unless you have questions regarding registration. Yadira Maria documented in this encounter [facility] 12-30-2021 Miscellaneous Notes Called and spoke with nurse about patients plan of care. Nurse calls asking about patient's catheter. It was explained that patient had 16 cuban coude catheter and was inserted because patient could not void. It was explained that patient needed to pass a voiding trial first prior to catheter being permanently removed. Patient is to come to either his primary care doc for voiding trial or back to [facility] office. Cristiane Canales I'm calling from [facility]. Our phone number here is [phone] documented in this encounter [facility] 12-25-2021 Nurse Note AMBULATORY CYSTOSCOPY PROCEDURE PREOPERATIVE/PROCEDURAL VERIFICATION: Patient verified by: Name and Date of UNIVERSAL PROTOCOL / SAFETY CHECKLIST Procedure to be Performed: Cystoscopy Sign In: A Moment of CARE was completed. Personnel directly involved with the procedure wore the appropriate PPE (Personal Protective Equipment). No special equipment needed. Patient/Surrogate Stated/Verified: PATIENT VERIFIED(optional for EMERGENT procedures): Patient name, Date of , Relevant allergies and The intended procedure Time Out Communication: Intended patient and procedure match the source documents. Consent documented and matches the intended procedure. No relevant labs, photos, and/or imaging studies were applicable for review. No correct side/site applicable for marking and visibility. Medications required for procedure verified. No fire risk assessment and interventions applicable. No implant(s) inserted. Sign Out: SIGN OUT (optional for EMERGENT procedures): No specimen collected. Serafin Hopkins Ma Medications and allergies reviewed and updated. Latex Allergy:No Pre-Procedure Antibiotics: Keflex 500 mg orally given during visit @ 1120 am , by Serafin Hopkins Ma Pre-Procedure Vital Signs: BP Blood pressure 133/62, pulse (!) 58, resp. rate 18, height 175.3 cm (5' 9 ), weight 84.8 kg (187 lb). Current pain intensity is 0 on a scale of 0-10. Patient Prepped with Betadine Scrub to perineum and placement of sterile drape. Anesthetic Given: 10cc 2% Lidocaine Jelly into Urethra. Instruction sheet given and reviewed: Yes Patient verbalizes understanding: Yes Post- procedure Vital Signs: B/P: 140/66 P: 58 R:18 Pain Ratin on a scale of 0 to 10. Specimens: none Patient here for Cystoscopy/ Trial Void. Bladder filled via cystoscope with 500cc of sterile water. Patient voided 50cc of clear yellow urine spontaneously without control. Patient has an upcoming appointment with PCP in [facility] on 12/31/21. He will check with them to see if they will perform another voiding trial, if not he will call the office to have that scheduled in [place]. Patient's vivas removed with all water removed from Balloon. Tolerated procedure well. New 16 cuban indwelling vivas catheter coude tip inserted using aspetic technique. Patient tolerated procedure well. Clear yellow urine returning confirming placement. Vivas bag emptying and catheter care and teaching done. Patient verbalizes understanding. Nurse: Serafin Hopkins Ma documented in this encounter [facility] 12-25-2021 History of Presen t illness Narrative Images from the original note were not included. [facility] CYSTOSCOPY PROCEDURE NOTE: Dami Almazan is a 86 year old male who presents with urinary retention and BPH for cystoscopy. Pt ID verified with patient: Yes Procedure verified with patient: Yes Procedure confirmed with physician and direct support staff: Yes UNIVERSAL PROTOCOL / SAFETY CHECKLIST Procedure to be Performed: Cystoscopu Sign In: A Moment of CARE was completed. Personnel directly involved with the procedure wore the appropriate PPE (Personal Protective Equipment). Patient/Surrogate Stated/Verified: PATIENT VERIFIED(optional for EMERGENT procedures): Patient name, Date of , Relevant allergies and The intended procedure Time Out Communication: Intended patient and procedure match the source documents. Consent documented and matches the intended procedure. Sign Out: SIGN OUT (optional for EMERGENT procedures): No specimen collected. Alvin Montgomery MD A urinalysis was performed revealing no evidence of infection. The benefits, risks, alternatives of the cystoscopy procedure and personnel were discussed with the patient. The verbal consent was obtained and the patient agrees to proceed. Procedure: The patient was placed on the procedure table in the supine position and prepped and draped in the usual sterile fashion. 2% Lidocaine Jelly was placed per urethra as an anesthetic in the standard fashion. Once adequate local anesthesia was achieved, the tip of the flexible cystoscope was carefully placed into the urethra under direct visual guidance. The scope was negotiated through the pendulous urethra to the level of the bulbar urethra with no evidence of stricture. The verumontanum came into view and the scope was negotiated through the prostatic urethra which showed evidence of bi lobar occlusive disease. The bladder was entered and careful medrano endoscopy was carried out. The posterior, superior and lateral moser and dome of the bladder were all well visualized and the scope was retroflexed upon itself. The findings were consistent with diffuse trabeculations and diverticula. At the conclusion of the procedure, the flexible cystoscope was removed atraumatically. The patient tolerated the procedure without complications. Patient was given standard post-procedure instructions, and was directed to complete the course of oral antibiotics and increase oral fluid intake as directed. ASSESSMENT/PLAN: Flomax 0.8mg and Finasteride Failed multiple VT since hip surgery Bowel regimen Cysto - Bilobar hypertrophy Repeat voiding trial today Unable to urinate, vivas replaced Pt will follow up locally for VT or schedule RN visit for repeat VT in 1 mo Alvin Montgomery MD documented in this encounter [facility] 12-09-2021 Instructions Jenifer Diaz APRN.[facility] - 12/09/2021 11:48 AM EDT Images from the original note were not included. Cystoscopy What is a cystoscopy? A cystoscopy is a procedure done by a urologist, a doctor specializing in the urinary system. During a cystectomy, the urologist uses a scope to look at the inside of the bladder, where urine is stored, and in the urethra, the channel that urine flows through out of the bladder. A cystoscopy may also be used to remove something that shouldn t be there, such as a bladder stone, or to take a biopsy (a sample of tissue) from the bladder lining to analyze it in the lab for further information. The procedure can also help with placing a catheter, which is a thin drainage tube for urine. When is a cystoscopy needed? The cystoscopy procedure is ordered by the urologist when more information is needed about what is happening inside the lower urinary tract. Most often it is used to check for any problems in the bladder and its lining. The procedure is also an important tool to identify what may be causing abnormal problems, such as: Frequent urinary tract infections (UTIs) Hematuria, or blood in the urine Urinary frequency, or urinating more than 8 times a day Urinary urgency, or the sudden, strong urge to urinate Urinary retention, or when the bladder does not empty completely Urinary incontinence, or urine leakage Pain or burning before, during, or after urination Trouble starting the flow of urine, completing urination, or both Abnormal cells found in a urine sample How does a patient prepare for a cystoscopy? Before the procedure is recommended, the urologist will ask about the patient s medical history, current prescription and jihn-zgc-eifvbnm medications, and allergies to medications, including anesthetics. The urologist will explain what the patient can expect after the procedure. The patient may need to give a urine sample to test for a urinary tract infection (UTI). If the patient has a UTI, the urologist may treat the infection with antibiotics before performing a cystoscopy. The urologist or nurse may ask the patient to drink plenty of liquids, and to urinate immediately before the procedure. What happens during a cystoscopy procedure? The cystoscopy procedure usually takes about 30 minutes and is done on an outpatient basis. The urologist will recommend that the patient empty his or her bladder before the procedure begins. The hhdb-ns-pjun process may be similar to this: 1. The patient will be lying on an exam table. The urologist may place some gel or a local anesthetic in the patient s urethra to aid in reducing any discomfort while the procedure is taking place. 2. The urologist will gently insert the cystoscope through the urethra into the bladder. The patient may feel discomfort or a pressure sensation. The cystoscope is a long, thin tube with a lens on one end that the urologist looks through or, on a camera-equipped scope, visualizes on a monitor. The other end of the cystoscope that is inserted into the urethra has a tiny lens with a light that allows the urologist to look inside the urethra and bladder. There are two types of cystoscopes. One has a flexible insertion tube while the other is stiff. 3. Once the cystoscope is inserted, the urologist will need to instill some sterile water or a normal saline solution from the cystoscope into the bladder. The water /saline fills and stretches the bladder so the urologist can get a better view of the bladder wall. 4. As the liquid enters the bladder, the patient may again feel some discomfort as well as the urge to urinate. If necessary, the urologist can remove some of the liquid from the bladder during the procedure. Once the procedure is over, the urologist may drain the patient s bladder, or ask the patient to use the bathroom to urinate before he or she leaves the office. During the brief procedure, the urologist examines the lining of the urethra as the cystoscope passes through it and then into the bladder. Once the cystoscope reaches the bladder, the urologist examines the lining of the bladder. During the procedure, the urologist can remove a bladder stone or take a biopsy if needed. Sometimes a monitor is set up in the doctor s office so that both the urologist and patient can watch the procedure as it is taking place. What does the urologist look for during a cystoscopy? The urologist will be looking for anything that appears unusual. The bladder wall should be smooth, and there should not be any blockages in the lower urinary tract. During a cystoscopy, the urologist is able to see: Bladder stones: A small stone-like mass that forms from minerals in the urine. It usually forms when urine does not completely leave the bladder and the minerals in the urine crystallize. If not treated, they can cause pain and lead to blood in the urine. A stone can also cause a blockage so that urine cannot leave the bladder. Abnormal tissue, polyps, tumors, or cancer in the urethra or bladder Stricture, or a narrowing of the urethra: This could be a symptom of an enlarged prostate in men or of scar tissue in the urethra. During the cystoscopy, can the urologist treat some problems? During a cystoscopy, the urologist may be able to treat minor problems such as bleeding in the bladder or blockage in the urethra. The urologist may also use a cystoscopy to: Remove a small stone in the bladder or urethra Remove or treat abnormal tissue, polyps, and certain tumors Inject medication into the urethra wall or the bladder to treat urinary leakage What happens after the cystoscopy procedure? Typically, a cystoscopy is done in the urologist s office and afterwards most patients go home the same day as the procedure. Sometimes after a cystoscopy procedure, the patient may: Feel a burning or soreness around the urethra Feel slight burning while urinating Notice small flecks of blood in the urine Feel mild discomfort in the bladder area or kidney area when urinating Need to urinate frequently or urgently These problems should not last more than a day after the procedure. If pain persists, bloody urine lasts longer than 48 hours, or the patient develops a fever, the patient should call the doctor. Occasionally, the patient may have an increase in urinary frequency for the first 24 hours after the procedure. There may be also a change in the color of the urine (it may be darker, or look pink or red due to mild bleeding). This is common, especially if a biopsy was taken. After the procedure, the urologist may recommend that the patient: Drink 16 ounces of water each hour for 2 hours after the procedure Take a warm bath to help ease the burning feeling Place a warm, damp washcloth over the urethral opening to relieve discomfort Take an exdg-out-xehsucm pain medicine If necessary, the urologist may prescribe an antibiotic to take for a couple of days after the procedure to prevent an infection. If you have severe pain, chills, or fever (these could be signs of an infection), it is important to call the urologist s office and explain the symptoms. What are the risks of cystoscopy? Every patient is different, and the urologist will take into consideration each patient s specific medical history when explaining possible complications from the procedure. Although minimal, the risks of cystoscopy may include: Urinary tract infections (UTI) Bleeding Abdominal pain Burning or discomfort during urination Possible injury to the urethra or bladder Narrowing of the urethra because of scar tissue formation Trouble urinating due to swelling of surrounding tissues If any of the following symptoms occur after a cystoscopy, you should call the urologist right away: Inability to urinate and the discomfort of a full bladder Burning or discomfort during urination that lasts more than 2 days Bright red urine or blood clots in the urine Fever Severe discomfort References: NIH: National [place] of Diabetes and Digestive and Kidney Diseases. Cystoscopy and Ureteroscopy Accessed 03/17/2017. Soila Rodriguez, Ashley H, Ramses MCGINNIS. The History of Cystoscopy in Urology, Internet Journal of Urology. 14,1 (2015) [employer] Accessed 03/17/2017. [facility]. What is Cystoscopy? Accessed 03/17/2017. Copyright 5472-2871 [facility]. All rights reserved. documented in this encounter [facility] 12-09-2021 History of Presen t illness Narrative Dami Almazan is a 86 year old male who presents today for evaluation of Patient presents with: New Patient Urinary Retention CHIEF COMPLAINT & HISTORY OF PRESENT ILLNESS CC: catheter 86 year old male with a history of BPH, s/p revision of right hip on 11/12/2021 then discharged to rehab, he has had numerous trial of voids with no success. He reports voiding a very small amount when the catheter is out. Vivas has been draining clear yellow urine, no clots Denies voiding difficulties prior to surgery He was started on flomax 0.8 mg at rehab about 2 weeks ago He has been taking finasteride for years Denies urological surgery Past Urological History: Stones:no Surgery:no Tumors:no Infections:no Family History of prostate Ca:no VITALS: Height 175.3 cm (5' 9 ). ALLERGIES: Sulfa (Sulfonamide Antibiotics) MEDICATIONS: Current Outpatient Medications Medication Sig Dispense Refill ferrous sulfate 325 mg (65 mg iron) tablet Take 325 mg by mouth daily with breakfast. tamsulosin (FLOMAX) 0.4 mg Take 0.4 mg by mouth once daily. potassium chloride (KLOR-CON M20 ORAL) Take 40 mEq by mouth once daily. aspirin, enteric coated (ASPIRIN, ENTERIC COATED) 81 mg EC tablet Take 1 tablet by mouth twice daily. doxycycline hyclate (VIBRAMYCIN) 100 mg capsule Take 1 capsule by mouth every 12 hours. Take for 3 months following surgery oxyCODONE IR (ROXICODONE) 5 mg immediate release tablet Take 1-2 tablets by mouth every 6 hours as needed. docusate sodium (COLACE) 100 mg capsule Take 1 capsule by mouth twice daily as needed for constipation. Take for as long as you are taking pain medication, stop if you develop diarrhea acetaminophen (TYLENOL 8 HOUR) 650 mg CR tablet Take 650 mg by mouth every 8 hours as needed. ascorbic acid, vitamin C, (VITAMIN C) 500 mg tablet Take 500 mg by mouth once daily. finasteride (PROSCAR) 5 mg tablet MULTIVITAMIN (MULTIPLE VITAMIN ORAL) Take 1 tablet by mouth once daily. vitamin A-ascorbic acid-vitamin E-minerals (VISION) tab Take 1 tablet by mouth once daily. Cranberry 500 mg cap Take 1 tablet by mouth once daily. triamterene-hydrochlorothiazide 37.5-25 mg per capsule Take 1 capsule by mouth once daily. Current Facility-Administered Medications Medication Dose Route Frequency Provider Last Rate Last Admin perflutren lipid microspheres 1.3 mL in NaCl (PF) 0.9% 10 mL injection (DEFINITY) INTRAVENOUS DIRECTED PRN Nissa Huber APRN.CNP sodium chloride 0.9 % (flush) 10 mL (BD POSIFLUSH) 10 mL INTRAVENOUS DIRECTED PRN Nissa Huber APRN.ASPHALT LAYER SOCIAL HISTORY: Social History Tobacco Use Smoking status: Never Smoker Smokeless tobacco: Never Used Vaping Use Vaping Use: Never used Substance Use Topics Alcohol use: No Drug use: No PAST MEDICAL HISTORY: PAST MEDICAL HISTORY Diagnosis Date BPH (benign prostatic hyperplasia) Bradycardia CLL (chronic lymphocytic leukemia) (HCC) Heart murmur HTN (hypertension) Irregular cardiac rhythm PAST SURGICAL HISTORY: PAST SURGICAL HISTORY Procedure Laterality Date LAPAROSCOPY SURG CHOLECYSTECTOMY Cholecystectomy, lap PAST SURGICAL HISTORY OF 07/11/2016 Partial right hip replacement RPR 1ST INGUN HRNA AGE 4 YRS/> REDUCIBLE Hernia repair, inguinal left FAMILY HISTORY: FAMILY HISTORY Problem Relation Age of Onset No Known Problems Mother No Known Problems Father No Known Problems Sister No Known Problems Sister No Known Problems Sister No Known Problems Sister Cancer Brother 60 back No Known Problems Brother No Known Problems Brother No Known Problems Brother No Known Problems Brother No Known Problems Maternal Grandmother No Known Problems Maternal Grandfather No Known Problems Paternal Grandmother No Known Problems Paternal Grandfather All histories reviewed on this date 12/09/2021: Yes REVIEW OF SYSTEMS: CONSTITUTIONAL: Patient reports no recent fever or weight loss EYES: Negative for redness, blurry vision, double vision or loss of vision EAR, NOSE AND THROAT: DENIES HAVING: Dysphagia CARDIOVASCULAR: Negative for chest pain. RESPIRATORY: Negative for cough, hemoptysis, wheezing, COPD, dyspnea or shortness of breath GI: No nausea, vomiting, or diarrhea MUSCULOSKELETAL: see HPI SKIN: Negative for lesions, rash, and itching PSYCH: Negative for sleep disturbance, mood disorder and recent psychosocial stressors. HEMATOLOGY/LYMPHOLOGY Negative for prolonged bleeding, bruising easily or swollen nodes ENDOCRINE: Negative for cold or heat intolerance, polyuria, polydipsia and goiter All other systems reviewed and are negative other than HPI. RADIOLOGY REPORTS REVIEWED: Yes LAB RESULTS REVIEWED: Yes IMAGING STUDIES INDEPENDENTLY REVIEWED: No OLD RECORDS REVIEWED: Yes: Extensive: No PHYSICAL EXAM: constitutional: appears healthy in no acute distress respiratory: normal respiratory motion gu: vivas catheter in place Neuro: assist, unable to weight bear Patient presents for trial of voiding. Bladder filled with 300 cc of sterile water, balloon deflated, vivas catheter removed without difficulty, balloon intact. Patient voided 0 cc. ASSESSMENT/PLAN: ASSESSMENT/PLAN: 1. Urinary retention - ICD9: 788.20, ICD10: R33.9 -failed trial of void, #16 coude placed -cystoscopy thad -continue with finasteride and flomax 0.8 mg po daily -vivas will need to be changed at the rehab facility in 4 weeks if his cystoscopy is not prior to then Patient is instructed to schedule a follow up for cystoscopy . Jenifer Diaz APRN.CNP Medical Decision Making: Problems: Moderate: New problem with uncertain prognosis Data: Unique test result(s) reviewed: 1 Unique test(s) ordered: 2 Risk: Moderate: Moderate risk from testing/treatment Medical Decision Making Level: 4 - Moderate documented in this encounter [facility] 12-01-2021 Note HNO ID: [id number] Author: JEN Good Service: Radiology Author Type: Technologist Type: Progress Notes Filed: 12/01/2021 8:57 AM Note Text: Radiology Service Progress Note PATIENT NAME: Dami Almazan DATE OF SERVICE: December 01, 2021 TIME: 8:57 AM PATIENT IDENTITY VERIFICATION COMPLETED USING TWO (2) IDENTIFIERS: Name and Date of confirmed by patient verbally. FALL SCREENING: Has the patient had 2 falls in the last year or 1 fall with injury or currently using an Ambulatory Assistive Device (Walker, Cane, Wheelchair, Crutches, etc.)? Yes, Patient High Risk for Falls What interventions were put in place to prevent falls during this visit? Offered Assistance with Transfers/Clothing and Increased Observations by Caregivers PATIENT GENDER DATA: Male PATIENT RELEVANT IMPLANT DATA REVIEWED: Not Applicable RADIOLOGY DEPARTMENT: General X-ray: Exam(s) Completed: Pelvis X-Ray: Pelvis with Hip Right PERIPHERAL IV DATA: Not applicable SIGNED BY: JEN Good December 01, 2021 8:57 AM [facility] 10-19-2021 Note HNO ID: [id number] Author: JEN Richards Service: Nuclear Medicine Author Type: Technologist Type: Progress Notes Filed: 10/19/2021 11:09 AM Note Text: RADIOLOGY SERVICE PROGRESS NOTE SERVICE DATE: 10/19/2021 SERVICE TIME: 11:08 AM PATIENT IDENTITY VERIFICATION COMPLETED USING TWO (2) STANDARD IDENTIFIERS: Name and Date of confirmed by patient verbally and Name and Date of confirmed by identification band FALL SCREENING: Has the patient had 2 falls in the last year or 1 fall with injury or currently using an Ambulatory Assistive Device (Walker, Cane, Wheelchair, Crutches, etc.)? Yes, Patient High Risk for Falls What interventions were put in place to prevent falls during this visit? Instructed Patient to Call for Help if Needed, Offered Assistance with Transfers/Clothing, Instructed Patient to Remain Seated (Not on Exam Table) Until Exam and Increased Observations by Caregivers PATIENT GENDER DATA: .male ALLERGIES: Reviewed and unchanged MEDICATIONS REVIEWED: Not applicable PATIENT RELEVANT IMPLANT DATA REVIEWED: Not Applicable CREATININE: Creatinine Date Value Ref Range Status 09/25/2021 1.10 0.73 - 1.22 mg/dL Final 05/25/2018 1.11 0.73 - 1.22 mg/dL Final 05/24/2017 1.15 0.73 - 1.22 mg/dL Final eGFR-All Other Races Date Value Ref Range Status 09/25/2021 >60 . Final Comment: eGFR (Estimated GFR) Units of measure: mL/min/1.73 meters squared eGFR is derived from the reexpressed MDRD Study equation using the following parameters: serum creatinine, age, gender and race. The creatinine assay has been calibrated to be traceable to IDMS. An eGFR <60 mL/min/1.73m2 for >3 months is consistent with chronic kidney disease. Refer to KDOQI guidelines for clinical interpretation. In patients with unstable renal function, e.g. those with acute kidney injury, the eGFR may not accurately reflect actual GFR. Note: On 11/14/2021, the eGFR calculation will be updated to the NKF-ASN Task Force recommended 2020 CKD-EPI creatinine equation which does not include a race variable. For more information or to access a 2020 CKD-EPI calculator, visit the National Kid[employer] website at kidney.org/professionals/kdoqi/g fr_calculator. eGFR- Date Value Ref Range Status 09/25/2021 >60 Final P.O.C.T. RESULTS: N/A October 19, [address] PERFORMED: No IV SITE: Ambulatory: A peripheral IV was started in the Right forearm with a Angio cath: 22 gauge. POST EXAM PIV STATUS: Discontinued PROCEDURE TYPE: NM Stress: 11.6mCi [id number] was administered IV for Rest Imaging at 09:49 by JEN Richards. 31.3 mCi [id number] was administered IV for Stress Imaging at 10:45 by JEN Richards. PATIENT DISCHARGED TO: Ambulatory patient, left [place] department area. A Diagnostic radioactive procedure has taken place, with no further precautions necessary other than routine body substance precautions. More information regarding radiation safety can be found using this link: [email or web address] [email or web address] SIGNATURE: JEN Richards PATIENT NAME: Dami Almazan DATE: October 19, 2021 TIME: 11:08 AM PAGER/CONTACT #: [facility] [place] [facility] Diagnosis Urinary retention- Primary Retention of urine, unspecified [facility] Diagnosis 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, without mention of having achieved remission [facility] Diagnosis 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, without mention of having achieved remission Anemia, unspecified type [facility] Pain in right hip- Primary Pain in joint, pelvic region and thigh [facility] [place] [facility]* Diagnosis 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 [facility] [place] [facility]* Diagnosis Pain in right hip Pain in joint, pelvic region and thigh [facility] [place] [facility]* Diagnosis 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, without mention of having achieved remission Anemia, unspecified type 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 [facility] [place] [facility]* Diagnosis 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, without mention of having achieved remission Microcytic anemia Iron deficiency anemia, unspecified [facility] [place] [facility]* Diagnosis 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, without mention of having achieved remission 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 documented in this encounter [facility] for referral (narrative)* Diagnostic Procedure Only (Routine) - Pending Review Specialty Diagnoses / Procedures Referred By Huma edwards Referred To Contact XR IMAGING Diagnoses Pain in right hip Procedures XR HIP 2V AP/LAT RIGHT ([place]) RADEX HIP UNILATERAL WITH PELVIS 2-3 VIEWS Kilo Castillo APRN.ASPHALT LAYER [address] [place] [address] Xr Imaging Referral ID Status Reason Start Date Expiration Date Visits Requested Visits Authorized [id number] Pending Review Auto-Generat ed Referral 02/18/2022 03/18/2023 1 1 T [facility] for referral (narrative)* Diagnostic Procedure Only (Routine) - Closed Specialty Diagnoses / Procedures Referred By Contac t Referred To Contact XR IMAGING Diagnoses Pain in right hip Procedures XR HIP 2V AP/LAT RIGHT ([place]) RADEX HIP UNILATERAL WITH PELVIS 2-3 VIEWS Kilo Castillo APRN.CNP [address] [place] [address] Xr Imaging Referral ID Status Reason Start Date Expiration Date V isits Requested Visits Authorized [id number] Closed Auto-Generate d Referral 02/18/2022 03/18/2023 1 1 [facility] for visit Narrative* Diagnostic Procedure Only (Routine) - Closed Specialty Diagnoses / Procedures Referred By Contac t Referred To Contact XR IMAGING Diagnoses Pain in right hip Procedures XR HIP 2V AP/LAT RT ([place]) RADEX HIP UNILATERAL WITH PELVIS 2-3 VIEWS Kilo Castillo APRN.ASPHALT LAYER [address] [id number] Xr Imaging Referral ID Status Reason Start Date Expiration Date V isits Requested Visits Authorized [id number] Closed Auto-Generate d Referral 07/23/2021 08/22/2022 1 1 [facility] Advance Directives No Advanced Directives Records FoundDocuments on File Type Date Recorded 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 Advance Directive(s) 11/12/2021 5:23 AM Advance Directive(s) 10/26/2021 1:40 PM Advance Directive(s) 09/23/2021 2:22 PM Documents on File Type Date Recorded 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 Advance Directive(s) 11/12/2021 5:23 AM Advance Directive(s) 10/26/2021 1:40 PM Advance Directive(s) 09/23/2021 2:22 PM Documents on File Type Date Recorded 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 Advance Directive(s) 10/26/2021 1:40 PM Medications Administered Section Inactive Administered Medications - up to 3 most recent administrations Medication Order MAR Action Action Date Dose Rate Site cephALEXin 500 mg cap(s) (KEFLEX) 500 mg, ORAL, ONCE, 1 dose, On Tue12/25/21 at 1200, Please document the antimicrobial indication: Empiric Given 12/25/2021 11:20 AM EDT 500 mg Oral lidocaine 2 % (XYLOCAINE) URETHRAL, ONCE, 1 dose, On Tue12/25/21 at 1200, FOR EXTERNAL USE ONLY APPLY TO: 11mL Given 12/25/2021 11:37 AM EDT 11 mL Other Summary Purpose Family History No Family History Records FoundNo Family History Records FoundNo Family History Records FoundNo Family History Records Found Additional Source Comments Source Comments (unrecognize d section and content) In the event this informatio n is protected by the Federal Confidentiality of Alcohol and Drug Abuse Patient Records regulations: The Federal rules restrict any use of the information to criminally investigate or prosecute any alcohol or drug abuse patient.[facility] the event this information is protected by the Federal Confidentiality of Alcohol and Drug Abuse Patient Records regulations: The Federal rules restrict any use of the information to criminally investigate or prosecute any alcohol or drug abuse patient.[facility] the event this information is protected by the Federal Confidentiality of Alcohol and Drug Abuse Patient Records regulations: The Federal rules restrict any use of the information to criminally investigate or prosecute any alcohol or drug abuse patient.[facility] the event this information is protected by the Federal Confidentiality of Alcohol and Drug Abuse Patient Records regulations: The Federal rules restrict any use of the information to criminally investigate or prosecute any alcohol or drug abuse patient.[facility] the event this information is protected by the Federal Confidentiality of Alcohol and Drug Abuse Patient Records regulations: The Federal rules restrict any use of the information to criminally investigate or prosecute any alcohol or drug abuse patient.[facility] the event this information is protected by the Federal Confidentiality of Alcohol and Drug Abuse Patient Records regulations: The Federal rules restrict any use of the information to criminally investigate or prosecute any alcohol or drug abuse patient.[facility] the event this information is protected by the Federal Confidentiality of Alcohol and Drug Abuse Patient Records regulations: The Federal rules restrict any use of the information to criminally investigate or prosecute any alcohol or drug abuse patient.[facility] the event this information is protected by the Federal Confidentiality of Alcohol and Drug Abuse Patient Records regulations: The Federal rules restrict any use of the information to criminally investigate or prosecute any alcohol or drug abuse patient.[facility] the event this information is protected by the Federal Confidentiality of Alcohol and Drug Abuse Patient Records regulations: The Federal rules restrict any use of the information to criminally investigate or prosecute any alcohol or drug abuse patient.[facility] the event this information is protected by the Federal Confidentiality of Alcohol and Drug Abuse Patient Records regulations: The Federal rules restrict any use of the information to criminally investigate or prosecute any alcohol or drug abuse patient.[facility] the event this information is protected by the Federal Confidentiality of Alcohol and Drug Abuse Patient Records regulations: The Federal rules restrict any use of the information to criminally investigate or prosecute any alcohol or drug abuse patient.[facility] the event this information is protected by the Federal Confidentiality of Alcohol and Drug Abuse Patient Records regulations: The Federal rules restrict any use of the information to criminally investigate or prosecute any alcohol or drug abuse patient.[facility] the event this information is protected by the Federal Confidentiality of Alcohol and Drug Abuse Patient Records regulations: The Federal rules restrict any use of the information to criminally investigate or prosecute any alcohol or drug abuse patient.[facility] the event this information is protected by the Federal Confidentiality of Alcohol and Drug Abuse Patient Records regulations: The Federal rules restrict any use of the information to criminally investigate or prosecute any alcohol or drug abuse patient.[facility] the event this information is protected by the Federal Confidentiality of Alcohol and Drug Abuse Patient Records regulations: The Federal rules restrict any use of the information to criminally investigate or prosecute any alcohol or drug abuse patient.[facility] Reason for Visit (unrecogniz ed section and content) Specialty Diagnoses / Procedures Referred By Huma t Referred To Contact Urology Diagnoses Urinary retention Procedures CONSULT TO UROLOGY OFFICE/OUTPATIENT [facility] 60-74 MINUTES Emmett Jaramillo MD [address] [address] Referral ID Status Reason Start Date Expiration Date V isits Requested Visits Authorized [id number] Closed PCP Requested Referral 12/01/2021 12/01/2022 1 1 Reason Comments Urinary Retention Reason Comments Patient Update Reason Comments Appointment Reason Comments Established Patient Reason Comments Results Reason Comments Follow Up Hip Replacement 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 Comments 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 Care Teams (unrecognized sec tion and content) Resident Assistant Cna Relationship Specialty Start Date End Date Miles Hart MD PCP - General Family Practice 07/10/15 Evans Arellano, DO [address] [place] [address] Consulting Hematology/Oncology 10/07/21 Emmett Jaramillo MD [address] [address] Orthopedics Orthopedics 10/07/21 Resident Assistant Cna Relationship Specialty Start Date End Date Miles Hart MD PCP - General Family Practice 07/10/15 Evans Arellano, DO [address] [facility] [place] [address] Consulting Hematology/Oncology 10/07/21 Emmett Jaramillo MD [address] [address] Orthopedics Orthopedics 10/07/21 Resident Assistant Cna Relationship Specialty Start Date End Date Miles Hart MD PCP - General Family Practice 07/10/15 Evans Arellano, DO [address] [place] [address] Consulting Hematology/Oncology 10/07/21 Emmett Jaramillo MD [address] [address] Orthopedics Orthopedics 10/07/21 Resident Assistant Cna Relationship Specialty Start Date End Date Miles Hart MD PCP - General Family Practice 07/10/15 Evans Arellano, DO [address] [place] [address] Consulting Hematology/Oncology 10/07/21 Emmett Jaramillo MD [address] [address] Orthopedics Orthopedics 10/07/21 Resident Assistant Cna Relationship Specialty Start Date End Date Miles Hart MD PCP - General Family Practice 07/10/15 Evans Arellano, DO [address] [place] [address] Consulting Hematology/Oncology 10/07/21 Emmett Jaramillo MD [address] [address] Orthopedics Orthopedics 10/07/21 Resident Assistant Cna Relationship Specialty Start Date End Date Miles Hart MD PCP - General Family Practice 07/10/15 Evans Arellano, DO [address] [place] [address] Consulting Hematology/Oncology 10/07/21 Emmett Jaramillo MD [address] [address] Orthopedics Orthopedics 10/07/21 Resident Assistant Cna Relationship Specialty Start Date End Date Miles Hart MD PCP - General Family Medicine 07/10/15 Evans Arellano, DO [address] [place] [address] Consulting Hematology/Oncology 10/07/21 Emmett Jaramillo MD [address] [address] Orthopedics Orthopedics 10/07/21 Resident Assistant Cna Relationship Specialty Start Date End Date Miles Hart MD PCP - General Family Medicine 07/10/15 Evans Arellano DO [address] [place] [address] Consulting Hematology/Oncology 10/07/21 Emmett Jaramillo MD [address] [address] Orthopedics Orthopedics 10/07/21 Resident Assistant Cna Relationship Specialty Start Date End Date Miles Hart MD PCP - General Family Medicine 07/10/15 Evans Arellano DO [address] [place] [address] Consulting Hematology/Oncology 10/07/21 Emmett Jaramillo MD [address] [address] Orthopedics Orthopedics 10/07/21 Resident Assistant Cna Relationship Specialty Start Date End Date Miles Hart MD PCP - General Family Medicine 07/10/15 Evans Arellano DO [address] [place] [address] Consulting Hematology/Oncology 10/07/21 Emmett Jaramillo MD [address] [address] Orthopedics Orthopedics 10/07/21 (unrecognized sect ion and content) No Status Records FoundNo Status Records FoundNo Status Records FoundNo Status Records Found INFORMATION SOURCE (unrecogn ized section and content) DATE CREATED AUTHOR AUTHOR'S ORGANIZ ATION 12/04/2022 [facility] DATE CREATED AUTHOR AUTHOR'S ORGANIZ ATION 06/26/2023 [facility] DATE CREATED AUTHOR AUTHOR'S ORGANIZ ATION 08/17/2023 [facility] FOR RECORDS PERTAINING TO PATIENTS WHO ARE OR HAVE BEEN ENROLLED IN A CHEMICAL DEPENDENCY/SUBSTANCEABUSE PROGRAM, SOME INFORMATION MAY BE OMITTED. This clinical summary was aggregated from multiple sources. Caution should be exercised in using it in the provision of clinical care. This summary normalizes information from multiple sources, and as a consequence, information in this document may materially change the coding, format and clinical context of patient data. In addition, data may be omitted in some cases. CLINICAL DECISIONS SHOULD BE BASED ON THE PRIMARY CLINICAL RECORDS. [facility] [employer] [facility]. provides no warranty or guarantee of the accuracy or completeness of information in this document.
== END | disposition home or self-care (01) ==
PROVIDERS: PCP Family Medicine; Referring Provider Physician Assistant; Visit Provider Physician Assistant
DX: Z48.812 Encounter for surgical aftercare following surgery on the circulatory system (principal)
CPT/HCPCS: 93922; 93926